=== PATIENT | male | born 1985 | race Caucasian/White ===

== ENCOUNTER → 2020-03-18 | Outpatient (CLI) | payer BC ==
--- NOTE | 2020-03-19 07:34 | MR ---
EXAMINATION TYPE: MR tspine/lspine wo con DATE OF EXAM: 03/18/2020 COMPARISON: None HISTORY: Pain in thoracic and lumbar spine CONTRAST: Performed utilizing 0 mL intravenous Gadavist gadolinium contrast. TECHNIQUE: Multiplanar, multiecho imaging on a 3.0 Sirisha magnet is performed through the thoracic spi ne. Spinal cord maintains normal signal through its visualized course. Vertebral body alignment is normal. Vertebral body heights are preserved. Disc heights are preserved. Disc hydration levels are preserved. No spinal canal stenosis is evident. IMPRESSIONS: 1. Normal MRI Thoracic Spine EXAMINATION TYPE: MR tspine/lspine wo con DATE OF EXAM: 03/18/2020 COMPARISON: None HISTORY: Pain in thoracic and lumbar spine CONTRAST: 0 mL intravenous Gadavist. TECHNIQUE: Multiplanar, multisequence images of the lumbar spine were acquired. FINDINGS: No disc herniation or significant disc. Disc height and vertebral body heights are preserved. Superio r endplate L2. Disc desiccation at L2-3 is present. Cord terminates at the L1 level. Inferior left renal cysts are present. IMPRESSION: 1. Minimal degenerative disc desiccation L2-3 without loss of disc height. 2. No suspicious changes to account for pain.
== END | disposition home or self-care (01) ==
LOC: RADMRIMAIN 07:53
PROVIDERS: ATTEND Internal Medicine
DX: M51.36 Other intervertebral disc degeneration, lumbar region (principal)
CPT/HCPCS: 72146; 72148